=== PATIENT | male | born 1970 | race American Indian/Alaskan Native ===

== ENCOUNTER 2021-08-01 13:51 | Emergency (ER) | payer OTHER ==
[2021-08-01] MEDS ORDERED: IBUPROFEN 800 MG TAB PO ONE (14:39)
[2021-08-01] MEDS ORDERED: CYCLOBENZAPRINE 10 MG TAB PO ONE (14:39)
[2021-08-01] MEDS ORDERED: HYDROcodone/ACETAMINOPHEN 10-325MG TAB PO ONE (14:39)
--- NOTE | 2021-08-01 14:39 | Emergency Department Report ---
ED Back Pain/Injury HPI - General Stated Complaint: RT KNEE/LEG Time Seen by Provider: 08/01/21 14:39 - History of Present Illness Initial Comments: 51 YO COMES TO ER WITH PAIN RADIATING FROM BACK TO RIGHT LEG - TO KNEE. HE ENDORSES PRIOR BACK INJURY WITH SIMILAR PAIN IN THE PAST NO NEW TRAUMA NO FEVER OR CHILLS NO ABD PAIN NO NV/D NO S[facility] TO ER Complaint: back pain -: Gradual, days(s) Similar Symptoms Previously: Yes Place: home, work Radiation: none Severity: moderate Severity scale (0 -10): 4 Quality: aching Consistency: intermittent Improves With: immobilization Worsens With: movement Context: while lifting Associated Symptoms: denies other symptoms - Related Data Previous Rx's Medication Instructions Recorded Last Taken Type Cyclobenzaprine [Flexeril] 10 mg PO TID PRN #10 tablet 08/01/21 Unknown Rx Ibuprofen [Motrin] 800 mg PO Q8HR PRN #30 tablet 08/01/21 Unknown Rx predniSONE [Deltasone] 20 mg PO DAILY #5 tablet 08/01/21 Unknown Rx traMADoL [Ultram] 50 mg PO Q6HR PRN #10 tablet 08/01/21 Unknown Rx Allergies Allergy/AdvReac Type Severity Reaction Status Date / Time No Known Allergies Allergy Unverified 08/01/21 14:38 ED Review of Systems ROS: Stated complaint: RT KNEE/LEG Other details as noted in HPI Comment: All other systems reviewed and negative ED Past Medical Hx - Past Medical History Previous Medical History?: No - Surgical History Past Surgical History?: Yes - Family History Family history: no significant - Social History Smoking Status: Never Smoker Substance Use Type: Alcohol - Medications Home Medications: Home Medications Medication Instructions Recorded Confirmed Last Taken Type Cyclobenzaprine [Flexeril] 10 mg PO TID PRN #10 tablet 08/01/21 Unknown Rx Ibuprofen [Motrin] 800 mg PO Q8HR PRN #30 tablet 08/01/21 Unknown Rx predniSONE [Deltasone] 20 mg PO DAILY #5 tablet 08/01/21 Unknown Rx traMADoL [Ultram] 50 mg PO Q6HR PRN #10 tablet 08/01/21 Unknown Rx ED Physical Exam - General Limitations: No Limitations General appearance: alert, in no apparent distress - Head Head exam: Present: atraumatic, normocephalic - Eye Eye exam: Present: normal appearance - ENT ENT exam: Present: mucous membranes moist - Neck Neck exam: Present: normal inspection - Respiratory Respiratory exam: Present: normal lung sounds bilaterally. Absent: respiratory distress - Cardiovascular Cardiovascular Exam: Present: regular rate, normal rhythm. Absent: systolic murmur, diastolic murmur, rubs, gallop - GI/Abdominal GI/Abdominal exam: Present: soft, normal bowel sounds - Rectal Rectal exam: Present: deferred - Extremities Exam Extremities exam: Present: normal inspection - Back Exam Back exam: Present: normal inspection - Neurological Exam Neurological exam: Present: alert, oriented X3 - Psychiatric Psychiatric exam: Present: normal affect, normal mood - Skin Skin exam: Present: warm, dry, intact, normal color. Absent: rash ED Course Vital Signs 08/01/21 14:40 Temperature 98.7 F Pulse Rate 80 Respiratory 18 Rate Blood Pressure 155/78 [Right] O2 Sat by Pulse 99 Oximetry ED Medical Decision Making - Medical Decision Making Vital Signs 08/01/21 14:40 Temperature 98.7 F Pulse Rate 80 Respiratory 18 Rate Blood Pressure 155/78 [Right] O2 Sat by Pulse 99 Oximetry MEDICATED FOR PAIN WHILE IN ER NEURO INTACT NO S/[facility] AND NAD DC HOME WITH DC PLAN OF CARE INCLUDING DIET, ACTIVITY, MEDS AND FOLLOW UP. HE VERBALIZES UNDERSTANDING OF THE PLAN OF CARE. - Differential Diagnosis A/C BACK PAIN WITH SCIATICA Critical care attestation.: If time is entered above; I have spent that time in minutes in the direct care of this critically ill patient, excluding procedure time. ED Disposition Clinical Impression: Chronic back pain, Sciatica Disposition: 01 HOME / SELF CARE / HOMELESS Is pt being admited?: No Does the pt Need Aspirin: No Condition: Stable Instructions: Radicular Pain, Neuropathic Pain Additional Instructions: MEDS ORDERED TODAY WARM BATHS AND COMPRESSES WILL HELP FOLLOW UP WITH PCP OR ORTHO MD IF PAIN PERSISTS THIS TENDS TO BE A CHRONIC ISSUE REFERRALS BELOW Prescriptions: predniSONE [Deltasone] 20 mg PO DAILY #5 tablet Cyclobenzaprine [Flexeril] 10 mg PO TID PRN #10 tablet PRN Reason: Muscle Spasm Ibuprofen [Motrin] 800 mg PO Q8HR PRN #30 tablet PRN Reason: Pain, Moderate (4-6) traMADoL [Ultram] 50 mg PO Q6HR PRN #10 tablet PRN Reason: Pain Referrals: EMELINA RAMAN MD [Staff Physician] - 3-5 Days AYLA TORRES MD [Staff Physician] - 3-5 Days Time of Disposition: 14:44
[2021-08-01] MEDS ORDERED: predniSONE 20 MG TAB PO ONE (14:49)
[2021-08-01 15:30] VITALS: BP 144/70
== END 2021-08-01 15:30 | disposition home or self-care (01) ==
LOC: ED 13:51
DX: M54.9 Dorsalgia, unspecified (principal); M54.30 Sciatica, unspecified side; F10.20 Alcohol dependence, uncomplicated
CPT/HCPCS: 99282